=== PATIENT | male | born 1980 | race Caucasian/White ===

== ENCOUNTER → 2017-04-15 | Outpatient (CLI) | payer OTHER ==
[2017-04-15 08:42] LABS: BASOPHILS # (AUTO) 0.07 10*3/UL; BASOPHILS % (AUTO) 1.5 % (0-1); EOSINOPHILS # (AUTO) 0.15 10*3/UL; EOSINOPHILS % (AUTO) 3.2 % (0-8); HEMATOCRIT 45.3 % (42.0-52.0); HEMOGLOBIN 15.9 g/dL (14.0-18.0); LYMPHOCYTES # (AUTO) 1.85 10*3/uL; MEAN CORPUSCULAR HEMOGLOBIN 29.1 PG (27-31); MEAN CORPUSCULAR HGB CONC 35.1 g/dL (33-37); MEAN PLATELET VOLUME 9.2 FL (7.4-12.2); MONOCYTES # (AUTO) 0.46 10*3/UL (0.3-0.8); MONOCYTES % (AUTO) 9.7 % (5-15); NEUTROPHILS # (AUTO) 2.22 10*3/UL; NEUTROPHILS % (AUTO) 46.7 % (50-80); RED BLOOD COUNT 5.46 10^6/uL (4.70-6.10)
[2017-04-15 09:33] LABS: BLOOD UREA NITROGEN 13 mg/dL (7-22); BUN/CREATININE RATIO 14.44 (6-20); CALCIUM 9.7 mg/dL (8.7-10.7); CHOL/HDL RATIO 4.45 RATIO (0-4.0); EST GLOMERULAR FILTRATION > 60 (>60 ml/min/1.73m(2)); HDL CHOLESTEROL 35 mg/dL (40-150); HEMOGLOBIN A1C 4.78 % (4.2-6.0); SERUM ALBUMIN 4.3 g/dL (3.5-4.8); SERUM CHOLESTEROL 156 mg/dL (120-200)
[2017-04-15 09:50] LABS: FREE T4 (FREE THYROXINE) 1.31 ng/dL (0.93-1.71)
[2017-04-15 10:27] LABS: PLATELET MORPHOLOGY COMMENT NORMAL MORPHOLOGY (NORM); RBC MORPHOLOGY COMMENT NORMAL MORPHOLOGY (NORM); WBC MORPHOLOGY COMMENT NORMAL MORPHOLOGY (NORM)
== END ==
LOC: LAB 08:10
PROVIDERS: ATTEND Family Medicine
DX: Z00.00 Encounter for general adult medical examination without abnormal findings (principal); I10 Essential (primary) hypertension; R53.83 Other fatigue; Z83.3 Family history of diabetes mellitus; Z12.5 Encounter for screening for malignant neoplasm of prostate
CPT/HCPCS: 36415; 80053; 80061; 82306; 83036; 84403; 84439; 84443; 85025; G0103